=== PATIENT | female | born 1995 | race Caucasian/White ===

== ENCOUNTER → 2016-06-05 | Outpatient (CLI) | payer BC ==
[2016-06-05 19:40] LABS: THYROID STIMULATING HORMONE 1.59 uIu/ml (0.300-4.500)
== END | disposition home or self-care (01) ==
LOC: C.LABMFLN 07:46
PROVIDERS: ATTEND Internal Medicine Endocrinology, Diabetes & Metabolism
DX: E03.9 Hypothyroidism, unspecified (principal)

== ENCOUNTER → 2016-07-16 | Outpatient (CLI) | payer BC ==
--- NOTE | 2016-07-16 12:23 | DIAGNOSTIC IMAGING REPORT ---
Ultrasound-guided thyroid biopsy GUIDANCE NEEDLE PLACEMENT CLINICAL HISTORY: THYROID NODULE TECHNIQUE: Ultrasound guided fine-needle aspiration COMPARISON STUDY: Ultrasound neck dated 07/03/2016 FINDINGS: Following description of procedure and informed consent, 2 passes with a 25-gauge needle were made to the dominant nodule lower aspect left thyroid. There were no complications. Pathology initially indicated adequate specimen cellularity for diagnosis. IMPRESSION: Successful fine-needle aspiration dominant nodule left lower thyroid Electronically signed by: Arturo Griffin M.D. 07/16/2016 12:21 PM Dictated Date/Time: 07/16/2016 12:20 PM
== END | disposition home or self-care (01) ==
LOC: C.ULTR 10:35
PROVIDERS: ATTEND Internal Medicine Endocrinology, Diabetes & Metabolism
DX: E04.1 Nontoxic single thyroid nodule (principal)

== ENCOUNTER → 2016-09-19 | Outpatient (CLI) | payer BC ==
[2016-09-19 18:13] LABS: THYROID STIMULATING HORMONE 1.7 uIu/ml (0.300-4.500)
== END | disposition home or self-care (01) ==
LOC: C.LABMFLN 07:50
PROVIDERS: ATTEND Internal Medicine Endocrinology, Diabetes & Metabolism
DX: E03.9 Hypothyroidism, unspecified (principal)

== ENCOUNTER → 2017-09-07 | Outpatient (CLI) | payer BC | END | disposition home or self-care (01) | LOC: C.LABMFLN 16:17 | PROVIDERS: ATTEND Internal Medicine Endocrinology, Diabetes & Metabolism | DX: E03.9 Hypothyroidism, unspecified (principal) ==